=== PATIENT | female | born 1935 ===

== ENCOUNTER 2019-06-20 16:12 | Outpatient (REF) | payer MEDICARE, MEDICAID, SELFPAY ==
[2019-06-20 16:37] LABS: Abs Immature Grans 0.04 k/cumm (0.0-0.09); Absolute Eosinophil Count 0.28 k/cumm (0.0-0.7); Absolute Lymphocyte Count 1.27 k/cumm (1.2-3.4); Absolute Monocyte Count 0.98 k/cumm (0.11-0.7); Absolute Neutrophil Count 9.16 k/cumm (1.2-6.7); Basophils % 0.3; Eosinophils % 2.4; HCT 37.9 % (36.0-46.0); HGB 12.3 g/dL (12.0-15.5); Immature Grans % 0.3; Lymphocytes % 10.8; Mean Corp. HGB Concentration 32.5 g/dL (32.0-36.0); Mean Corpuscular Hemoglobin 29.6 pg (27.0-33.0); Mean Corpuscular Volume 91.3 fL (80-95); Monocytes % 8.3; Neutrophils % 77.9; Platelet Count 503 x1000/uL (130-400); RBC 4.15 m/cumm (4.00-5.20); RBC Distribution Width 13.9 % (11.7-14.6); White Blood Cell Count 11.76 k/cumm (4.4-10.8)
[2019-06-20 16:38] LABS: Absolute Basophil Count 0.04 k/cumm (0.0-0.2)
[2019-06-20 18:43] LABS: ALT 13 U/L (12-78); AST 12 U/L (15-37); Albumin 2.5 g/dL (3.4-5.0); Alkaline Phosphatase 72 U/L (46-116); Anion Gap 9.5 mmol/L (3-11); BUN 10 mg/dL (7-18); Bilirubin, Total 0.5 mg/dL (0.2-1.0); CO2 24.5 mmol/L (21.0-32.0); CREATININE 0.74 mg/dL (0.55-1.02); Calcium 8.4 mg/dL (8.5-10.1); Chloride 104 mmol/L (98-107); Glucose 115 mg/dL (70-100); Magnesium 1.9 mg/dL (1.8-2.4); Potassium 4.4 mmol/L (3.5-5.1); Sodium 138 mmol/L (136-145); TSH (W/Ref FT4) 0.67 uIU/mL (0.36-3.74); Total Protein 5.1 g/dL (6.4-8.2); Vitamin B12 669 pg/mL (193-986)
== END 2019-06-20 16:32 ==
LOC: LBN 16:12
PROVIDERS: PCP Family Medicine; Visit Provider Family Medicine
DX: I10 Essential (primary) hypertension (principal); E03.9 Hypothyroidism, unspecified; R25.2 Cramp and spasm; M81.0 Age-related osteoporosis without current pathological fracture; R53.83 Other fatigue
CPT/HCPCS: 80053; 82607; 83735; 84443; 85025

== ENCOUNTER 2019-09-27 15:55 | Outpatient (REF) | payer MEDICARE, MEDICAID, SELFPAY ==
[2019-09-27 13:29] LABS: Bilirubin Negative (Negative); Blood Moderate (Negative); Clarity Cloudy (Clear); Glucose Negative (Negative); Ketones Negative (Negative); Leukocyte Esterase Large (Negative); Nitrite Positive (Negative); Specific Gravity 1.025 (1.005-1.025); Urobilinogen 0.2 EU/dL (Up TO 0.2)
[2019-09-27 13:41] LABS: WBC >50 HPF (0-5)
[2019-09-27 13:42] LABS: C & S Indicated? C&S Done As Ordered
== END 2019-09-27 16:15 ==
LOC: LBN 15:55
PROVIDERS: PCP Family Medicine; Visit Provider Nurse Practitioner Gerontology
DX: N39.0 Urinary tract infection, site not specified (principal)
CPT/HCPCS: 87077; 81003; 81015; 87086; 87186

== ENCOUNTER 2020-03-04 19:26 | Outpatient (REF) | payer MEDICARE, MEDICAID, SELFPAY ==
[2020-03-04 19:15] LABS: Abs Immature Grans 0.01 k/cumm (0.0-0.09); Absolute Basophil Count 0.02 k/cumm (0.0-0.2); Absolute Eosinophil Count 0.13 k/cumm (0.0-0.7); Absolute Lymphocyte Count 1.35 k/cumm (1.2-3.4); Absolute Monocyte Count 0.61 k/cumm (0.11-0.7); Absolute Neutrophil Count 5.58 k/cumm (1.2-6.7); Basophils % 0.3; Eosinophils % 1.7; Immature Grans % 0.1 %; Lymphocytes % 17.5; Mean Corp. HGB Concentration 25.6 g/dL (32.0-36.0); Mean Corpuscular Hemoglobin 16.7 pg (27.0-33.0); Mean Corpuscular Volume 65.3 fL (80-95); Mean Platelet Volume 9.2 fL (8.0-11.0); Monocytes % 7.9; Neutrophils % 72.5; Platelet Count 561 x1000/uL (130-400); RBC 2.45 m/cumm (4.00-5.20)
[2020-03-04 19:23] LABS: HGB 4.1 g/dL (12.0-15.5)
[2020-03-04 19:33] LABS: Anisocytosis 3+; Diff Comment RBC Morph Reviewed
[2020-03-04 19:34] LABS: Hypochromasia 3+; Microcytosis 2+; Poikilocytes 2+; Polychromasia Present
[2020-03-04 19:42] LABS: ALT 11 U/L (14-59); AST 13 U/L (15-37); Albumin 2.4 g/dL (3.4-5.0); Alkaline Phosphatase 79 U/L (46-116); Anion Gap 9.4 mmol/L (3-11); BUN 13 mg/dL (7-18); Bilirubin, Total 0.3 mg/dL (0.2-1.0); CO2 23.6 mmol/L (21.0-32.0); CREATININE 1.04 mg/dL (0.55-1.02); Calcium 8.4 mg/dL (8.5-10.1); Chloride 105 mmol/L (98-107); Estimated GFR 50.61 (mL/min/1.73m2); Glucose 182 mg/dL (74-106); Potassium 4.2 mmol/L (3.5-5.1); Sodium 138 mmol/L (136-145); Total Protein 5.8 g/dL (6.4-8.2)
[2020-03-06 13:18] LABS: Haptoglobin 255 mg/dL (32-197)
== END 2020-03-04 19:46 ==
LOC: LBN 19:26
PROVIDERS: PCP Family Medicine; Visit Provider Family Medicine
DX: R11.2 Nausea with vomiting, unspecified (principal); R17 Unspecified jaundice; D64.9 Anemia, unspecified
CPT/HCPCS: 80053; 82248; 83010; 83615; 85025